=== PATIENT | male | born 1965 | race Caucasian/White ===

== ENCOUNTER 2019-04-10 10:15 | Emergency (ER) | payer SELFPAY ==
[~2019-04-10] VITALS: Ht 180.3 cm; Wt 79.4 kg
[~2019-04-10 10:15] MED LIST: OXYC1TAB15 PO
[2019-04-10] MEDS ORDERED: IV NORMAL SALINE 1000ML BAG 1,000 ML IV SCH (11:08)
--- NOTE | 2019-04-10 11:12 | PHYS DOC ---
Past Medical History Past Medical History: Other Additional Past Medical Histor: RT INGUINAL HERNIA Past Surgical History: No Surgical History Smoking: Cigarettes Alcohol Use: Sober Drug Use: None Adult General Chief Complaint Chief Complaint: POST-OP PROBLEM HPI HPI Patient is a 53-year-old male who presents to the emergency department for evaluation. He states he had a right inguinal hernia repair on and was released from the hospital on Wednesday. He states that since release from the hospital, he has had recurrent nausea and vomiting, unable to tolerate by mouth. He has also had persistent right inguinal pain at the site of the surgery. He states he was given a prescription for Percocet postoperative, but due to a past history of alcohol abuse, he was afraid of addiction to the medication and has not taken any. He has not taken any antiemetics. He also reports a generalized headache, and generalized malaise. The headache was not abrupt in onset, and has been present since he left the hospital. He also reports feeling dizzy and generally weak and fatigued. There are no alleviating or exacerbating factors to his symptoms otherwise. Review of Systems Review of Systems Constitutional: Denies fever or chills [] Eyes: Denies change in visual acuity, redness, or eye pain [] HENT: Denies nasal congestion or sore throat [] Respiratory: Denies cough or shortness of breath [] Cardiovascular: The patient denies any shortness of breath, chest pain, palpitations, or orthopnea [] GI: Denies bloody stools or diarrhea. The patient's last bowel movement was 2 days ago, and was small, but this has been the only bowel movement he had since leaving the hospital. [] : Denies dysuria or hematuria [] Musculoskeletal: Denies back pain or joint pain [] Integument: Denies rash or skin lesions [] Neurologic: Denies headache, focal weakness or sensory changes [] Endocrine: Denies polyuria or polydipsia [] All other systems were reviewed and found to be within normal limits, except as documented in this note. Current Medications Current Medications Current Medications Medications (Trade) Dose Ordered Sig/Carlos Eduardo Start Time Stop Time Status Last Admin Dose Admin Acetaminophen (Tylenol) 1,000 mg 1X ONCE 04/10/19 11:15 04/10/19 11:16 DC 04/10/19 11:36 1,000 MG Morphine Sulfate (Morphine Sulfate) 4 mg 1X ONCE 04/10/19 11:15 04/10/19 11:16 DC 04/10/19 11:36 4 MG Ondansetron HCl (Zofran) 4 mg 1X ONCE 04/10/19 11:15 04/10/19 11:16 DC 04/10/19 11:36 4 MG Sodium Chloride 1,000 ml @ 1,000 mls/hr Q1H 04/10/19 11:08 04/10/19 12:07 DC 04/10/19 11:36 1,000 MLS/HR Allergies Allergies Allergies Coded Allergies Type Severity Reaction Last Updated Verified No Known Drug Allergies 04/06/19 No Physical Exam Physical Exam PHYSICAL EXAM: CONSTITUTIONAL: Well developed, well nourished HEAD: normocephalic, atraumatic EENT: PERRL, EOMI. Conjunctivae normal color, sclerae non-icteric; moist mucous membranes. NECK: Supple, non-tender; no meningismus. LUNGS: Lungs CTA, breathing even and unlabored. Normal air movement. HEART: Regular rate and rhythm, no murmur CHEST: No deformity; non-tender ABDOMEN: The abdomen is soft, and non-tender, no masses or bruits. Bowel sounds are present. There is tenderness to palpation in the right inguinal region, where there is a healing surgical scar, without any warmth or erythema or abnormal fluid collections apparently exam. EXTREM: Normal ROM; no deformity, no calf tenderness. Normal pulses palpable in all extremities. There is no pedal edema. SKIN: No rash; no diaphoresis NEURO: Alert; normal speech and cognition; CN's grossly intact; strength grossly intact without focal deficit. BACK: No CVA TTP. Current Patient Data Vital Signs Vital Signs Date Time Temp Pulse Resp B/P (MAP) Pulse Ox O2 Delivery O2 Flow Rate FiO2 04/10/19 12:16 60 18 110/69 (83) 95 Room Air 04/10/19 10:39 98.6 98.6 Lab Values Laboratory Tests Test 04/10/19 10:48 04/10/19 11:23 Urine Collection Type Unknown Urine Color Yellow Urine Clarity Clear Urine pH 5.5 Urine Specific [place] 1.025 Urine Protein Negative mg/dL (NEG-TRACE) Urine Glucose (UA) Negative mg/dL (NEG) Urine Ketones (Stick) Negative mg/dL (NEG) Urine Blood Negative (NEG) Urine Nitrite Negative (NEG) Urine Bilirubin Negative (NEG) Urine Urobilinogen Dipstick 0.2 mg/dL (0.2 mg/dL) Urine Leukocyte Esterase Negative (NEG) Urine RBC 0 /HPF (0-2) Urine WBC Pending Urine Bacteria 0 /HPF (0-FEW) Urine Mucus Marked /LPF White Blood Count 7.6 x10^3/uL (4.0-11.0) Red Blood Count 4.68 x10^6/uL (4.30-5.70) Hemoglobin 14.4 g/dL (13.0-17.5) Hematocrit 42.4 % (39.0-53.0) Mean Corpuscular Volume 91 fL (79-100) Mean Corpuscular Hemoglobin 31 pg (25-35) Mean Corpuscular Hemoglobin Concent 34 g/dL (31-37) Red Cell Distribution Width 13.6 % (11.5-14.5) Platelet Count 228 x10^3/uL (140-400) Neutrophils (%) (Auto) 54 % (31-73) Lymphocytes (%) (Auto) 34 % (24-48) Monocytes (%) (Auto) 6 % (0-9) Eosinophils (%) (Auto) 4 % (0-3) H Basophils (%) (Auto) 1 % (0-3) Neutrophils # (Auto) 4.1 x10^3/uL (1.8-7.7) Lymphocytes # (Auto) 2.6 x10^3/uL (1.0-4.8) Monocytes # (Auto) 0.5 x10^3/uL (0.0-1.1) Eosinophils # (Auto) 0.3 x10^3/uL (0.0-0.7) Basophils # (Auto) 0.1 x10^3/uL (0.0-0.2) Sodium Level 141 mmol/L (136-145) Potassium Level 4.1 mmol/L (3.5-5.1) Chloride Level 105 mmol/L (98-107) Carbon Dioxide Level 30 mmol/L (21-32) Anion Gap 6 (6-14) Blood Urea Nitrogen 14 mg/dL (8-26) Creatinine 0.8 mg/dL (0.7-1.3) Estimated GFR (Cockcroft-Gault) 101.1 BUN/Creatinine Ratio 18 (6-20) Glucose Level 84 mg/dL (70-99) Calcium Level 8.8 mg/dL (8.5-10.1) Total Bilirubin 0.3 mg/dL (0.2-1.0) Aspartate Amino Transferase (AST) 13 U/L (15-37) L Alanine Aminotransferase (ALT) 14 U/L (16-63) L Alkaline Phosphatase 73 U/L (46-116) Total Protein 6.5 g/dL (6.4-8.2) Albumin 3.2 g/dL (3.4-5.0) L Albumin/Globulin Ratio 1.0 (1.0-1.7) Lipase 56 U/L (73-393) L Laboratory Tests 04/10/19 11:23 Laboratory Tests 04/10/19 11:23 EKG EKG [] Radiology/Procedures Radiology/Procedures [PROCEDURE: ACUTE ABDOMEN SERIES Examination: ACUTE ABDOMEN SERIES History: Nausea and vomiting, post inguinal hernia surgery Comparison/Correlation: None Findings: Frontal view chest was obtained. Supine and upright views of the abdomen were obtained. Heart size and pulmonary vasculature are normal. No suspicious infiltrates. Supine and upright views of the abdomen demonstrate fluid levels within nondistended bowel. No obstruction or extraluminal gas. Impression: No focal infiltrate. No obstruction. Fluid levels in nondistended bowel may represent mesenteritis or ileus. ] Course & Med Decision Making Course & Med Decision Making Pertinent Labs and Imaging studies reviewed. (See chart for details) []12:40 PM: The patient's condition remains stable, he is feeling significantly better at this time. I do suspect his symptoms are related to postoperative ileus. His abdominal exam remains benign, without tenderness, or signs of obstr uction. I discussed hospitalization with the patient but he would like to go home. I discussed importance of close follow-up with his surgeon, and return precautions in detail. Dragon Disclaimer Dragon Disclaimer This electronic medical record was generated, in whole or in part, using a voice recognition dictation system. Departure Departure Impression: Primary Impression: Postoperative ileus Disposition: 01 HOME, SELF-CARE Condition: STABLE Referrals: JHON PACK MD Patient Instructions: Ileus, Pain Relief Preoperatively and Postoperatively Scripts Ondansetron Hcl (ZOFRAN) 4 Mg Tablet 1 TAB PO Q6HRS PRN for NAUSEA/VOMITING, #20 TAB Prov: ANIBAL MOYA MD 04/10/19 ANIBAL MOYA MD Apr 10, 2019 11:12
[2019-04-10] MEDS ORDERED: ONDANSETRON PF 4 MG/2 ML VIAL. IV ONE (11:15)
[2019-04-10] MEDS ORDERED: MORPHINE SULFATE 4 MG/ML VIAL. IV ONE (11:15)
[2019-04-10] MEDS ORDERED: ACETAMINOPHEN 500 MG TABLET PO ONE (11:15)
[2019-04-10 11:33] LABS: BILIRUBIN,URINE NEGATIVE (NEG); CLARITY,URINE CLEAR; COLOR,URINE YELLOW; NITRITE,URINE NEGATIVE (NEG); PH,URINE 5.5; PROTEIN,URINE NEGATIVE (NEG-TRACE); UROBILINOGEN,URINE 0.2 mg/dL (0.2 mg/dL)
[2019-04-10 11:37] LABS: BASO # 0.1 x10^3/uL (0.0-0.2); BASO % 1 % (0-3); EOS # 0.3 x10^3/uL (0.0-0.7); EOS % 4 % (0-3); HEMATOCRIT 42.4 % (39.0-53.0); HEMOGLOBIN 14.4 g/dL (13.0-17.5); LYMPH # 2.6 x10^3/uL (1.0-4.8); LYMPH % 34 % (24-48); MEAN CORPUSCULAR HEMOGLOBIN 31 pg (25-35); MEAN CORPUSCULAR HGB CONC 34 g/dL (31-37); MEAN CORPUSCULAR VOLUME 91 fL (79-100); MONO # 0.5 x10^3/uL (0.0-1.1); MONO % 6 % (0-9); NEUT # 4.1 x10^3/uL (1.8-7.7); NEUT % 54 % (31-73); PLATELET COUNT 228 x10^3/uL (140-400); RED BLOOD COUNT 4.68 x10^6/uL (4.30-5.70); RED CELL DISTRIBUTION WIDTH 13.6 % (11.5-14.5); WHITE BLOOD COUNT 7.6 x10^3/uL (4.0-11.0)
[2019-04-10 11:43] LABS: CALCIUM 8.8 mg/dL (8.5-10.1); CREATININE 0.8 mg/dL (0.7-1.3); GFR 101.1; POTASSIUM 4.1 mmol/L (3.5-5.1)
--- NOTE | 2019-04-10 11:44 | RAD ---
Examination: ACUTE ABDOMEN SERIES History: Nausea and vomiting, post inguinal hernia surgery Comparison/Correlation: None Findings: Frontal view chest was obtained. Supine and upright views of the abdomen were obtained. Heart size and pulmonary vasculature are normal. No suspicious infiltrates. Supine and upright views of the abdomen demonstrate fluid levels within nondistended bowel. No obstruction or extraluminal gas. Impression: No focal infiltrate. No obstruction. Fluid levels in nondistended bowel may represent mesenteritis or ileus. Electronically signed by: Kb Mcdonald MD (04/10/2019 11:41 AM) [facility]
[2019-04-10 11:49] LABS: ALBUMIN 3.2 g/dL (3.4-5.0); TOTAL BILIRUBIN 0.3 mg/dL (0.2-1.0); TOTAL PROTEIN 6.5 g/dL (6.4-8.2)
[2019-04-10 12:00] LABS: BACTERIA,URINE 0 /HPF (0-FEW); RBC,URINE 0 /HPF (0-2)
[2019-04-10 12:46] VITALS: BP 110/75
[2019-04-10] MEDS ORDERED: ONDA4TAB7 PO (12:46)
[2019-04-10 12:50] LABS: WBC,URINE 0 /HPF (0-4)
== END 2019-04-10 13:03 | disposition home or self-care (01) ==
LOC: ER 10:15
DX: K91.89 Other postprocedural complications and disorders of digestive system (principal); K56.7 Ileus, unspecified; F17.210 Nicotine dependence, cigarettes, uncomplicated; R42 Dizziness and giddiness; Z98.890 Other specified postprocedural states
CPT/HCPCS: 36415; 74022; 80053; 81001; 83690; 85025; 96361; 96374; 96375; 99285; J2270; J2405; J7030